=== PATIENT | female | born 1965 ===

== ENCOUNTER 2020-04-06 08:00 | Inpatient (IN) | payer OTHER ==
[2020-04-06] MEDS ORDERED: LIPITOR40 MG (14:32)
[2020-04-06] MEDS ORDERED: SYNTHROID50 MCG (14:32)
== END 2020-04-20 16:34 | disposition home or self-care (01) | DRG 330 ==
LOC: SURH 04-14 08:00 → O/R 04-14 09:19 → SURG 04-14 09:19 → SURH 04-14 13:00 → SURG 04-15 00:51
PROVIDERS: ADMIT Colon & Rectal Surgery; ATTEND Colon & Rectal Surgery
PROC: 0DBN4ZZ Excision of Sigmoid Colon, Percutaneous Endoscopic Approach (ICD-10-PCS; 2020-04-14)
PROC: 0DJD8ZZ Inspection of Lower Intestinal Tract, Via Natural or Artificial Opening Endoscopic (ICD-10-PCS; 2020-04-14)
PROC: 0DTP4ZZ Resection of Rectum, Percutaneous Endoscopic Approach (ICD-10-PCS; principal; 2020-04-14 13:00)
DX: C19 Malignant neoplasm of rectosigmoid junction (principal); N39.0 Urinary tract infection, site not specified; R33.8 Other retention of urine; Z68.31 Body mass index [BMI] 31.0-31.9, adult; E03.8 Other specified hypothyroidism; E66.8 Other obesity

== ENCOUNTER 2020-07-23 08:57 | Inpatient (IN) | payer OTHER ==
[~2020-07-23] VITALS: Ht 162.6 cm; Wt 95.3 kg
[~2020-07-23 08:57] MED LIST: LIPITOR40 MG; SYNTHROID50 MCG
[2020-07-27] MEDS ORDERED: METOCLOPRAMIDE10 MG (11:46)
[2020-07-27] MEDS ORDERED: SUCRALFATE1 GM (11:46)
[2020-07-27] MEDS ORDERED: FAMOTIDINE20 MG (11:46)
[2020-07-27] MEDS ORDERED: DICYCLOMINE HCL20 MG (11:46)
[2020-07-27] MEDS ORDERED: PANTOPRAZOLE SO40 MG (11:46)
[2020-08-18] MEDS ORDERED: AUGMENTIN XR 11 EACH PO (18:01)
[2020-08-18] MEDS ORDERED: PROTONIX40 MG PO (18:02)
== END 2020-08-18 19:54 | disposition home or self-care (01) | DRG 356 ==
LOC: ER 08:57 → SURG 20:45
PROVIDERS: ADMIT Colon & Rectal Surgery; ATTEND Colon & Rectal Surgery
PROC: 0D7 Gastrointestinal System, Dilation (ICD-10-PCS; 2020-07-29)
PROC: 02HV33Z Insertion of Infusion Device into Superior Vena Cava, Percutaneous Approach (ICD-10-PCS; 2020-08-01)
PROC: 0D9W3ZZ Drainage of Peritoneum, Percutaneous Approach (ICD-10-PCS; 2020-08-01)
PROC: 0WJG4ZZ Inspection of Peritoneal Cavity, Percutaneous Endoscopic Approach (ICD-10-PCS; principal; 2020-08-01 10:00)
PROC: 0W9G30Z Drainage of Peritoneal Cavity with Drainage Device, Percutaneous Approach (ICD-10-PCS; 2020-08-11)
DX: K91.89 Other postprocedural complications and disorders of digestive system (principal); K65.1 Peritoneal abscess; K56.690 Other partial intestinal obstruction; K91.71 Accidental puncture and laceration of a digestive system organ or structure during a digestive system procedure; T81.49XA Infection following a procedure, other surgical site, initial encounter; B96.29 Other Escherichia coli [E. coli] as the cause of diseases classified elsewhere; B96.4 Proteus (mirabilis) (morganii) as the cause of diseases classified elsewhere; F43.23 Adjustment disorder with mixed anxiety and depressed mood; Y83.2 Surgical operation with anastomosis, bypass or graft as the cause of abnormal reaction of the patient, or of later complication, without mention of misadventure at the time of the procedure; Y73.2 Prosthetic and other implants, materials and accessory gastroenterology and urology devices associated with adverse incidents

== ENCOUNTER 2020-09-02 17:06 | Emergency (ER) | payer OTHER ==
[~2020-09-02] VITALS: Ht 167.6 cm; Wt 76.7 kg
[~2020-09-02 17:06] MED LIST changes: +AUGMENTIN XR 11 EACH PO; +DICYCLOMINE HCL20 MG; +FAMOTIDINE20 MG; +METOCLOPRAMIDE10 MG; +PANTOPRAZOLE SO40 MG; +PROTONIX40 MG PO; +SUCRALFATE1 GM
[2020-09-03] MEDS ORDERED: LEVSIN/SL0.125 MG SL (00:59)
[2020-09-03] MEDS ORDERED: MIRALAX510 GM PO (00:59)
[2020-09-03] MEDS ORDERED: INTESTINEX680 M1 PO (00:59)
[2020-09-03] MEDS ORDERED: ZOFRAN8 MG PO (01:02)
[2020-09-03] MEDS ORDERED: ALLEGRA ALLERG180 MG PO (01:02)
== END 2020-09-03 01:09 ==
LOC: ER 17:06
DX: R10.12 Left upper quadrant pain (principal); R10.32 Left lower quadrant pain; K59.09 Other constipation; R11.2 Nausea with vomiting, unspecified

== ENCOUNTER 2020-09-14 01:25 | Inpatient (IN) | payer OTHER ==
[~2020-09-14] VITALS: Ht 167.6 cm; Wt 75.3 kg
[~2020-09-14 01:25] MED LIST changes: +ALLEGRA ALLERG180 MG PO; +INTESTINEX680 M1 PO; +LEVSIN/SL0.125 MG SL; +MIRALAX510 GM PO; +ZOFRAN8 MG PO
--- NOTE | 2020-09-14 01:36 | NUR ---
PTE ALERTA Y ORIENTADA X 3 ESFERAS QUIEN REFIERE DOLOR ABDOMINAL DESDE QUE LE DIERON DE ROGERS EL SHARONA 16 DE ,REFIERE VOMITOS X2 HOY,REFIERE HISTORIAL DE OBSTRUCCION Y PERFORACION.FUE OPERADA POR DR SALMERON.
--- NOTE | 2020-09-14 02:02 | NUR ---
MISS. LAGOS ORIENTA A PACIENTE SOBRE TRATAMIENTO. NIC MUESTRAS DE LABORATORIO ORDENADAS. CANALIZA CON AREA DE VENOPUNCION BEVERLY DE EDEMA O ENROJECIMIENTO. ADMINISTRA MEDICAMENTOS ORDENADOS. SE MANTIENE EN OBSERVACION POR CAMBIOS.
--- NOTE | 2020-09-14 06:25 | NUR ---
PACEINTE RE EVALUADO POR EL DR. TORITO NICOLE ORDENA [place]. NUEVO Y COLOCA CONSULTA CON CIRUGIA. PTE ORIENTADO SOBRE EL TX. SE ADMINISTRAN MEDICAMENTO PRASANTH ORDEN MEDICA.
--- NOTE | 2020-09-14 07:07 | NUR ---
SE RECIBE PTE FEMENINA ALERTA Y ORIENTADA EN [place] ESFERAS DEL TURNO ANTERIOR, SE OBSERVA CON BUEN PATRON RESPIRATORIO Y NO REFIERE DOLOR AL MOMENTO. VENOPUNCION PATENTE, BEVERLY DE EDEMA Y ERITEMA RECIBIENDO TERAPIA DE IVFS 0.9NSS BAJANDO A 150ML/HR. PTE CON ORDEN DE NPO; EN MANNIE BAJA CON BARANDAS ELEVADAS Y FRENOS COLOCADOS POR SEGURIDAD. PENDIENTE CONSULTA CON .
[2020-09-14] MEDS ORDERED: FAMOTIDINE20 MG (16:12)
[2020-09-14] MEDS ORDERED: SUCRALFATE1 GM (16:12)
[2020-09-14] MEDS ORDERED: PANTOPRAZOLE SO40 MG (16:12)
[2020-09-14] MEDS ORDERED: DICYCLOMINE HCL20 MG (16:13)
[2020-09-14] MEDS ORDERED: METOCLOPRAMIDE10 MG (16:13)
== END 2020-09-29 14:43 | disposition home or self-care (01) | DRG 330 ==
LOC: ER 01:25 → SEC-K 08:57 → SURH 08:57 → O/R 09-18 15:27 → SURH 09-18 15:34
PROVIDERS: ADMIT Colon & Rectal Surgery; ATTEND Colon & Rectal Surgery
PROC: BW21YZZ Computerized Tomography (CT Scan) of Abdomen and Pelvis using Other Contrast (ICD-10-PCS; 2020-09-15)
PROC: 0DBN8ZX Excision of Sigmoid Colon, Via Natural or Artificial Opening Endoscopic, Diagnostic (ICD-10-PCS; principal; 2020-09-18)
PROC: 0DTN4ZZ Resection of Sigmoid Colon, Percutaneous Endoscopic Approach (ICD-10-PCS; 2020-09-22)
DX: K56.690 Other partial intestinal obstruction (principal); K91.89 Other postprocedural complications and disorders of digestive system; C19 Malignant neoplasm of rectosigmoid junction; K64.8 Other hemorrhoids; K59.09 Other constipation; E03.8 Other specified hypothyroidism; K63.89 Other specified diseases of intestine; F43.23 Adjustment disorder with mixed anxiety and depressed mood; E66.8 Other obesity; Z20.822 Contact with and (suspected) exposure to COVID-19